=== PATIENT | female | born 1955 | race Caucasian/White ===

== ENCOUNTER 2016-06-21 11:57 | Day surgery (SDC) | payer OTHER ==
[~2016-06-21] VITALS: Ht 160 cm; Wt 70.8 kg
[~2016-06-21 11:57] MED LIST: 0.9% Sodium Chloride 1,000 ML IV SCH; ERGO2000 PO; LEVO50TA83 PO; PRAV20TA2 PO; PRIM50TA PO; PROZ20 PO; Sodium Chloride LOK Flush 10 mL Syringe IV PRN; fentaNYL-PF 50 mCg/mL 2 mL Inj IVPUSH PRN
[2016-06-21 12:32] VITALS: BP 123/72; PULSE 78; RESP 16; O2SAT 95
[2016-06-21] MEDS ORDERED: LORA0.5T PO (12:32)
[2016-06-21 13:58] VITALS: BP 120/77; PULSE 75; RESP 14; O2SAT 95
[2016-06-21 14:08] VITALS: BP 114/63; PULSE 70; RESP 16; O2SAT 96
[2016-06-21 14:18] VITALS: BP 116/68; PULSE 70; RESP 14; O2SAT 98
--- NOTE | 2016-06-21 16:35 | ENDO ---
[address] [address] ENDOSCOPY PROCEDURE PATIENT: ANISH SWANN : 1955 MR#: [id number] ADMIT: 06/21/2016 JOB ID: [id number] PROCEDURE: Colonoscopy. INDICATION: Screening. ANESTHESIA: The patient's ASA classification is two. Mallampati score is two. MEDICATIONS: Versed 9 mg, fentanyl 175 mcg. INSTRUMENT USED: PCF H 180 AL. PREPARATION QUALITY: Good. PROCEDURE DETAILS: After informed consent was obtained, the patient was brought into the GI suite, where she was placed on oxygen via nasal cannula and monitored with continuous pulse oximeter, telemetry, and blood pressure monitoring. A time-out was performed, then she was placed in the left lateral decubitus position and medications were administered for sedation. Digital rectal exam was performed, which was unremarkable. The colonoscope was then inserted into the rectum and advanced under direct visualization to the cecum, which was identified by the presence of the ileocecal valve and appendiceal orifice. Once the cecum was reached, the colonoscope was withdrawn back into the rectum as the mucosa and lumen were examined. In the rectum, retroflexion was performed. Following retroflexion, the remaining air in the rectum was suctioned and the procedure was completed. FINDINGS: 1. In the ascending colon, there was an approximately 4 mm sessile polyp that was removed with a cold snare. 2. Scattered diverticula were seen throughout the sigmoid colon. IMPRESSION: 1. Ascending colon polyp. 2. Sigmoid diverticulosis. RECOMMENDATIONS: 1. Repeat colonoscopy pending polyp pathology results. 2. Fiber rich diet. COMPLICATIONS: None. ESTIMATED BLOOD LOSS: Less than 5 mL.
--- NOTE | 2016-06-28 10:08 | PATH ---
SURGICAL PATHOLOGY Attending Physician:Ivon Rosario CASE STATUS: Signed Out PATIENT NAME: ANISH SWANN PID: [id number] : 1955 DATE COLLECTED:06/21/2016 21:12 SPECIMEN: Colon, Biopsy CLINICAL HISTORY: 1). ASCENDING POLYP X1 FINAL DIAGNOSIS: 1.ASCENDING COLON POLYP: TUBULAR ADENOMA. ICD10 CODE D12.1 GROSS DESCRIPTION: Received in formalin, labeled with the patient' s name and "ascending polyp", is one fragment of baez, soft tissue measuring 0.1 x 0.1 x 0.1 cm. The fragment is totally submitted in cassette 1A. ([id number]) MICRO DESCRIPTION: See diagnosis. ICD-9 CODES: CPT CODES: 1: 44838 Electronically Signed Out Khanh Reardon MD [facility] Pathology [facility] [address], [place] [address] Technical component performed at [facility], [facility] [address], [place], [address]
== END 2016-06-21 23:59 | disposition home or self-care (01) ==
LOC: END 11:57
PROVIDERS: ATTEND Internal Medicine Gastroenterology
DX: Z12.11 Encounter for screening for malignant neoplasm of colon (principal); D12.2 Benign neoplasm of ascending colon; K57.30 Diverticulosis of large intestine without perforation or abscess without bleeding; Z83.71 Family history of colonic polyps; F41.8 Other specified anxiety disorders; E03.9 Hypothyroidism, unspecified; E78.5 Hyperlipidemia, unspecified; E55.9 Vitamin D deficiency, unspecified; F10.20 Alcohol dependence, uncomplicated
CPT/HCPCS: 45385; 99153; G0500; J2250; J3010; J7030